=== PATIENT | male | born 1970 | race Hispanic/Latino ===

== ENCOUNTER 2017-05-06 09:54 | Inpatient (IN) | payer MEDICAID ==
--- NOTE | 2017-05-06 10:25 | C.PDOC ---
History Of Present Illness 46 y/o male presents to the ED requesting detox. Pt uses heroin IV. No physical complaints at this time. Denies h/o seizures. Last use : last night. Time Seen by Provider: 05/06/17 10:12 Chief Complaint (Nursing): Substance Abuse History Per: Patient History/Exam Limitations: no limitations Suicide/Self Injury Attempted (Context): None Modifying Factor(s): Narcotics Severity: Mild Involuntary Hold By: None Recent travel outside of the [place]: No Past Medical History Reviewed: Historical Data, Nursing Documentation, Vital Signs Vital Signs: Last Vital Signs Temp 98.5 F 05/06/17 13:15 Pulse 69 05/06/17 13:15 Resp 18 05/06/17 13:15 BP 134/78 05/06/17 13:15 Pulse Ox 99 05/06/17 13:15 Family History: States: Unknown Family Hx - Social History Hx Alcohol Use: No Hx Substance Use: Yes - Immunization History Hx Influenza Vaccination: Yes Hx Pneumococcal Vaccination: Yes Review Of Systems Except As Marked, All Systems Reviewed And Found Negative. Physical Exam - Physical Exam Appears: Non-toxic, No Acute Distress Skin: Warm, Dry, No Rash, Other ((+) track quiles b/l extremities) Head: Atraumatic, Normacephalic Eye(s): bilateral: Normal Inspection, EOMI Nose: Normal Oral Mucosa: Moist Neck: Normal, Normal ROM Chest: Symmetrical Cardiovascular: Rhythm Regular Respiratory: Normal Breath Sounds, No Rales, No Rhonchi, No Wheezing Gastrointestinal/Abdominal: Soft, No Tenderness Extremity: Bilateral: Atraumatic Neurological/Psych: Oriented x3, Normal Speech ED Course And Treatment - Laboratory Results Result Diagrams: 05/06/17 10:34 05/06/17 10:34 O2 Sat by Pulse Oximetry: 91 (room air) Pulse Ox Interpretation: Normal Progress Note: Plan: labs, UA, CRISIS evaluation Disposition - Disposition Disposition: HOSPITALIZED Disposition Time: 13:38 Condition: STABLE - Clinical Impression Clinical Impression: Opioid dependence - PA / SPOT BILLING CLERK / Resident Statement MD/DO has reviewed & agrees with the documentation as recorded. - Scribe Statement The provider has reviewed the documentation as recorded by the Scribe Leonardo August All medical record entries made by the Scribe were at my direction and personally dictated by me. I have reviewed the chart and agree that the record accurately reflects my personal performance of the history, physical exam, medical decision making, and the department course for this patient. I have also personally directed, reviewed, and agree with the discharge instructions and disposition.
[2017-05-06 10:46] LABS: BASO % 0.5 % (0.0-2.0); EOS # 0.1 K/uL (0.0-0.7); HEMOGLOBIN 12.8 g/dL (12.0-18.0); LYMPH # 1.1 K/uL (1.0-4.3); LYMPH % 12.3 % (20.0-40.0); MEAN CELL VOLUME 88.3 fL (80.0-94.0); MEAN CORPUSCULAR HEMOGLOBIN 29.6 pg (27.0-31.0); MEAN CORPUSCULAR HGB CONC 33.5 g/dL (33.0-37.0); MEAN PLATELET VOLUME 8.7 fL (7.2-11.7); MONO # 0.8 K/uL (0.0-0.8); MONO % 8.8 % (0.0-10.0); NEUT % 77.4 % (50.0-75.0); RBC 4.32 Mil/uL (4.40-5.90); RED CELL DISTRIBUTION WIDTH 13.6 % (11.5-14.5)
[2017-05-06 10:48] LABS: SQUAMOUS EPITHIAL < 1 /hpf (0-5); URINE BILIRUBIN NEGATIVE (NEGATIVE); URINE CLARITY Clear (Clear); URINE COLOR Yellow (YELLOW); URINE GLUCOSE (UA) NORMAL (Normal); URINE LEUKOCYTE ESTERASE NEG Leu/uL (Negative); URINE NITRATE NEGATIVE (NEGATIVE); URINE PROTEIN NEGATIVE (NEGATIVE); URINE UROBILINOGEN NORMAL mg/dL (0.2-1.0)
[2017-05-06 10:49] LABS: ALBUMIN 4.3 g/dL (3.5-5.0)
[2017-05-06 10:51] LABS: GFR AFRICAN-AMERICAN > 60; GFR NON-AFRICAN AMERICAN > 60
[2017-05-06 10:52] LABS: ALB/GLOB RATIO 1.3 (1.0-2.1); ALT/SGPT 43 U/L (21-72); AST/SGOT 30 U/L (17-59); BLOOD UREA NITROGEN 21 mg/dL (9-20); CALCIUM 8.9 mg/dl (8.6-10.4)
[2017-05-06 10:53] LABS: URINE BLOOD 2+ (NEGATIVE)
[2017-05-06 11:00] LABS: BARBITURATES, UR NEGATIVE (NEGATIVE)
[2017-05-06 11:01] LABS: BENZODIAZEPINES, UR NEGATIVE (NEGATIVE)
[2017-05-06 11:04] LABS: PHENCYCLIDINE, UR NEGATIVE (NEGATIVE)
[2017-05-06 11:38] LABS: OPIATES, UR POSITIVE (NEGATIVE)
[2017-05-06] MEDS ORDERED: Aluminum Hydroxide/Magnesium Hydroxide Susp (30 mL) PO PRN (14:07)
--- NOTE | 2017-05-06 15:22 | PCM.PSYCH ---
Initial Psychiatric Evaluation - Initial Psychiatric Evaluation Type of Admission: Voluntary Legal Status: Capacity Chief Complaint (in patient's own words): 'I came to get clean from heroin' History of Present Illness and Precipitating Events: Patient is a 46-year-old [place] male, single, no child, unemployed but his "friends help" and he lives alone, came to the hospital seeking detox for heroin. Patient states that he has been abusing 10 bags of heroin per day by IV, with his last use being at 1 am last night. He states that he tested positive for opiates, and his PO recommended him for detox and rehab. Patient reports withdrawal symptoms of lacrimation, rhinorrhea, sweating, and cramps. He states that he recently started smoking 4 cigarettes per day. He denies use of any other substances. Patient states that this is the second time he is in detox unit for heroin abuse. He denies any psychiatric history, or psychiatric hospitalizations. Patient states that he started abusing heroin since 2002, but quit during [facility] sentence from [id number], and resumed again. He also states that he abused Percocet after his hip fracture injury in 2000. Patient denies abusing any other substances. Past medical history hip fracture Current Medications: Active Medications Generic Name Dose Route Start Last Admin Trade Name Freq PRN Reason Stop Dose Admin Al Hydrox/Mg Hydrox/Simethicone 30 ml 05/06/17 14:07 Maalox 30 Ml PO TID PRN Indigestion / Heartburn Clonidine HCl 0.1 mg 05/06/17 14:07 Catapres PO Q8 PRN COWS Score More or Equal to 5 Hydroxyzine HCl 50 mg 05/06/17 14:08 Atarax PO Q6H PRN Anxiety Ibuprofen 600 mg 05/06/17 14:08 Motrin Tab PO Q6H PRN Pain, moderate (4-7) Loperamide HCl 2 mg 05/06/17 14:07 Imodium PO Q8 PRN Diarrhea Methadone HCl 20 mg 05/06/17 18:00 Methadone PO 05/06/17 18:01 ONCE ONE Methadone HCl 15 mg 05/07/17 10:00 Methadone PO 05/11/17 09:59 Q24H UVALDO Taper Ondansetron HCl 4 mg 05/06/17 14:07 Zofran Tab PO Q8 PRN Nausea/Vomiting Trazodone HCl 100 mg 05/06/17 14:08 Desyrel PO HS PRN Insomnia Past Psychiatric History - Past Psychiatric History Previous Treatment History: Inpatient Pertinent Medical Hx (Current Medical&Sleep Prob, Allergies): Allergies Allergy/AdvReac Type Severity Reaction Status Date / Time RED MEAT Allergy Uncoded 05/06/17 10:09 No Known Home Med 05/06/17 Review of Systems - Constitutional Constitutional: Sweats - EENT Eyes: Discharge - Psychiatric Psychiatric: Abnormal Sleep Pattern, Anxiety. absent: Hallucinations, Homicidal Ideation, Paranoia, Suicidal Ideation Mental Status Examination - Personal Presentation Personal Presentation: Looks stated age - Affect Affect: Constricted - Motor Activity Motor Activity: Calm - Reliability in Providing Information Reliability in Providing Information: Fair - Speech Speech: Organized - Mood Mood: Neutral - Formal Thought Process Formal Thought Process: No Impairment - Cognitive Functions Orientation: Person, Place, Situation, Time Sensorium: Alert Attention/Concentration: Attentive Judgement: Imparied, as evidence by: Poor judgement Memory: Recent intact, as evidence by: Ability to recall events of the day, Remote intact, as evidenced by: Abilit to recall sig. life events - Risk Risk: Withdrawal, Diminished functioning - Strength & Assets Inventory Strength & Assets Inventory: Cooperative - Limitations Limitations: Living alone DSM 5 DX - DSM 5 DSM 5 Diagnosis: Opioid use disorder - severe Opioid withdrawal r/o personality d/o unspecified - Recommended/Plan of Treatment Treatment Recommendations and Plan of Treatment: Methadone detox As needed meds and vitamins Attend groups and activities [place] for abstinence and CBT for relapse prevention Support and psychoeducation Consider and encourage MAT Refer to after care 35 min Projected ELOS: 4-5 days Discharge Plan and Discharge Criteria: Patient states that he will go to [facility] in [place], [place] for 6-9 months. - Smoking Cessation Smoking Cessation Initiated: Yes
--- NOTE | 2017-05-06 17:13 | PCM.BM ---
<ReneAnnabella - Last Filed: 05/06/17 17:10> Treatment Plan Problems - Problems identified on initial assessmt Substance Abuse: Opiates Date Initiated: 05/06/17 Time Initiated: 17:10 Assessment reference: NA Status: Active Priority: 1 Problem 1 Date Initiated: 05/06/17 Time Initiated: 17:13 Assessment reference: NA Status: Active Priority: 1 Comment: (+) opiates Ineffective Coping Skills Date Initiated: 05/06/17 Time Initiated: 17:13 Assessment reference: NA Status: Active Priority: 2 Treatment assets and liabiliti Patient Assests: cooperative, negotiates basic needs, cognitively intact Patient Liabilities: substance abuse, legal issue (on probation) - Milieu Protocol Maintain good personal hygiene: daily Encourage regular showers, every shift Remind patient to perform daily oral care Conduct patient checks and document Observation sheet: Q15 minutes Maintain personal safety: every shift Educate patient to report safety concerns to staff, every shift Monitor environment for contraband/sharps Medication safety: Monitor for expected outcome, potential side effects: every shift, Assess barriers to learning: every shift, Assess readiness for medication education: every shift Milieu Narrative: Methadone detox As needed meds and vitamins Attend groups and activities [place] for abstinence and CBT for relapse prevention Support and psychoeducation Consider and encourage MAT Refer to after care 35 min Discharge/Continuing Care - Additional Comments Methadone detox As needed meds and vitamins Attend groups and activities [place] for abstinence and CBT for relapse prevention Support and psychoeducation Consider and encourage MAT Refer to after care 35 min - Treatment Team Participation Patient/Family/SO Statement: Methadone detox As needed meds and vitamins Attend groups and activities [place] for abstinence and CBT for relapse prevention Support and psychoeducation Consider and encourage MAT Refer to after care 35 min <Carly Betancourt - Last Filed: 05/07/17 14:41> Family Contact Family involvement: Famliy/SO not involved Family contact: Patient declines to allow family contact at present - Goals for Treatment Patient goals for treatment: "I wanna get clean so I can get into the [facility]". Discharge/Continuing Care - Education Needs Education Needs: Patient Diagnosis/Disease Process, Patient Coping Skills, Patient Anger Management skills, Patient Community resources - Discharge Discharge Criteria: No longer exhibiting s/s of withdrawal <Pascual Boudreaux - Last Filed: 05/07/17 21:12> - Diagnosis (1) Opioid dependence Status: Acute Interventions: 05/07/17 21:12 * Assess 7x/week regarding severity of withdrawal * Educate regarding risks, benefits, side effects and alternatives of medications * Use Motivational Interviewing for abstinence * Use CBT for relapse prevention * Medication management for withdrawal symptoms * Encourage medication assisted treatment *
--- NOTE | 2017-05-07 15:27 | PCM.PYCHPN ---
Psychiatric Progress Note - Psychiatric Progress Note Patient seen today, length of contact: 15 min Patient Chief Complaint: "So so" Problems Identified/Issues Discussed: Patient is seen, evaluated, and case discussed with staff. Patient states that he is feeling better today. Patient denies any withdrawal symptoms. Patient is compliant with all medications, and does not report any side effects. Patient is improving slowly but needs more time to stabilize. Support and psychoeducation given. [place] used Medication Change: Yes (detox changes daily) Medical Record Reviewed: Yes Mental Status Examination - Cognitive Function Orientation: Person, Place, Situation, Time Memory: Intact Attention: WNL Concentration: Poor Association: WNL Fund of Knowledge: Poor - Mood Mood: Neutral - Affect Affect: Constricted - Speech Speech: Appropriate - Formal Thought Process Formal Thought Process: No Impairment - Suicidal Ideation Suicidal Ideation: No - Homicidal Ideation Homicidal Ideation: No Goal/Treatment Plan - Goal/Treatment Plan Need for Continued Stay: Remain at risks for inpatient hospitalization, Discharge may exacerbated symptoms Progress Toward Problem(s) and Goals/Treatment Plan: Methadone detox As needed meds and vitamins Attend groups and activities [place] for abstinence and CBT for relapse prevention Support and psychoeducation Consider and encourage MAT Will start [facility] Estimated Date of D/C: 05/09/17
[2017-05-08 10:11] VITALS: BP 134/71; PULSE 90; RESP 19; TEMP 98.2; O2SAT 99
--- NOTE | 2017-05-08 14:36 | PCM.PYCHDC ---
Mental Status Examination - Mental Status Examination Orientation: Person, Place, Situation, Time Memory: Intact Mood: Anxious Affect: Constricted Speech: Appropriate Attention: WNL Concentration: Poor Formal Thought Process: No Impairment Suicidal Ideation: No Current Homicidal Ideation?: No Discharge Summary - Discharge Note Reason for Hospitalization: Patient came to the hospital seeking heroin detox. Consultations:: List each consultation separately and include: 1. Reason for request. 2. Findings. 3. Follow-up Summary of Hospital Course include:: 1. Description of specific treatment plan utilized for patients during their course of treatmen. 2. Summarize the time- course for resolution of acute symptoms and/or regressed behaviors. 3. Describe issues identified and worked on during hospitalization. 4. Describe medication utilized. 5. Describe medical problems identified and treated. 6. Reassessment of suicide risk Summary of Hospital Course: Upon Hospitalization Patient is a 46-year-old [place] male, single, no child, unemployed but his "friends help" and he lives alone, came to the hospital seeking detox for heroin. Patient states that he has been abusing 10 bags of heroin per day by IV, with his last use being at 1 am last night. He states that he tested positive for opiates, and his PO recommended him for detox and rehab. Patient reports withdrawal symptoms of lacrimation, rhinorrhea, sweating, and cramps. He states that he recently started smoking 4 cigarettes per day. He denies use of any other substances. Patient states that this is the second time he is in detox unit for heroin abuse. He denies any psychiatric history, or psychiatric hospitalizations. Patient states that he started abusing heroin since 2002, but quit during [facility] sentence from [id number], and resumed again. He also states that he abused Percocet after his hip fracture injury in 2000. Patient denies abusing any other substances. Past medical history hip fracture Upon Discharge Methadone detox - Pt did not take last dose today due to wanting to leave The pt was admitted and started on treatment with psychotherapy, support, psychoeducation and medications. [place] and CBT used. The pt attended groups and activities, as well as milieu therapy. All the risks and benefits of medications are discussed and the patient understood and agreed. The pt improved with the treatments provided. After care discussed with the patient. He was initially keen on going back to [facility] where he was referred from, but then he changed his mind and said he is not sure b/c he was "running away from parole" for a month and that he is afraid he would be caught here or there. He was surprised that we knew he had been at [facility] recently (we learned from his insurance when they called to pre-cert him) and that made him fear that his PO can find him here thru insurance. He says he may turn himself in after his birthday and in [place], not [facility] in [place] "they use methadone in jails." Risks of leaving early discussed and he did not chng his mind but he said he would go to another inpatient program from here, likely in [place] or [facility]. He was befriending another client here who left ([facility]) with the pt, so they may be planning things together. - Final Diagnosis (DSM 5) Condition upon Discharge: STABLE DSM 5: Opioid use disorder - severe Opioid withdrawal r/o personality d/o unspecified Disposition: HOME/ ROUTINE Follow-up Treatment Plan: Will start [facility] in [place] or maybe "somewhere else" Continue below medications after discharge. Use relapse prevention skills. Return to ER or call 911 if suicidal, homicidal or symptoms relapse. Stay away from stress, alcohol and drugs. Use relaxation techniques. See primary doctor once a year and get labs. Clear legal issues as soon as possible to pursue a drug and legal hassle free life. He agreed. - Smoking Cessation Smoking Cessation Medication prescribed: No - Antipsychotic Medications Pt discharged on 2 or more routine antipsychotic medications: No
== END 2017-05-08 12:05 | disposition home or self-care (01) | DRG 745 ==
LOC: C.ER 09:54 → C.7D 12:19
PROVIDERS: ADMIT Psychiatry & Neurology Psychiatry; ATTEND Psychiatry & Neurology Psychiatry
PROC: HZ2ZZZZ Detoxification Services for Substance Abuse Treatment (ICD-10-PCS; principal; 2017-05-06)
PROC: HZ52ZZZ Individual Psychotherapy for Substance Abuse Treatment, Cognitive-Behavioral (ICD-10-PCS; 2017-05-06)
PROC: HZ42ZZZ Group Counseling for Substance Abuse Treatment, Cognitive-Behavioral (ICD-10-PCS; 2017-05-06)
PROC: HZ59ZZZ Individual Psychotherapy for Substance Abuse Treatment, Supportive (ICD-10-PCS; 2017-05-06)
PROC: HZ56ZZZ Individual Psychotherapy for Substance Abuse Treatment, Psychoeducation (ICD-10-PCS; 2017-05-06)
PROC: HZ46ZZZ Group Counseling for Substance Abuse Treatment, Psychoeducation (ICD-10-PCS; 2017-05-06)
DX: F11.23 Opioid dependence with withdrawal (principal); F17.210 Nicotine dependence, cigarettes, uncomplicated; G47.00 Insomnia, unspecified

== ENCOUNTER 2018-08-10 16:00 | Emergency (ER) | payer MEDICAID ==
[2018-08-10 16:28] VITALS: BP 144/85; PULSE 81; RESP 19; TEMP 97.9; O2SAT 99; BMI 26.9
== END 2018-08-10 16:20 | disposition left against medical advice (07) ==
LOC: C.ER 16:00
DX: Z02.89 Encounter for other administrative examinations (principal); J11.1 Influenza due to unidentified influenza virus with other respiratory manifestations